=== PATIENT | female | born 1990 | race Caucasian/White ===

== ENCOUNTER → 2020-11-10 | Outpatient (CLI) | payer OTHER ==
[~2020-11-10] MED LIST: HYDR-2765 PO
== END ==
LOC: LAB 10:19
PROVIDERS: ATTEND Orthopaedic Surgery
DX: Z01.812 Encounter for preprocedural laboratory examination (principal); Z20.822 Contact with and (suspected) exposure to COVID-19
CPT/HCPCS: U0003; U0005

== ENCOUNTER 2020-11-13 05:58 | Day surgery (SDC) | payer OTHER ==
--- NOTE | 2020-11-12 19:39 | PDOC1 ---
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 She reports having had a LEFT wrist dorsal ganglion cyst over the ulnar aspect of the wrist drained twice previously and having had recurrence. Third attempt was made to drain the cyst as well reported to be not successful. The fluid she confirms was clear jellylike fluid. 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 She is reported healthy without a surgical history or prior trauma to the wrist. She is right-hand dominant. She denies any radicular type symptoms in the upper extremity or acute sense of illness, fevers, chills, night sweats. She tells me that she aspires to get excepted into the [employer]'s Nursing or PA program. Current Medications Current Medications Current Medications Clindamycin Phosphate 50 ml @ 100 mls/hr 1X PREOP PRN IV PRIOR TO PROCEDURE; Start 11/13/20 at 06:00; Stop 11/13/20 at 18:00 Allergies Allergies: Coded Allergies: Penicillins (Verified Allergy, Intermediate, Hives, 11/12/20) Physical Exam General: Alert HEENT: Atraumatic Lungs: Normal air movement Heart: RRR Abdomen: Soft Extremities: Other (Ganglion cyst is present of the left wrist) Skin: No significant lesion Neuro: Normal speech VTE Prophylaxis Ordered VTE Prophylaxis Devices: No VTE Pharmacological Prophylaxi: No Assessment/Plan Assessment/Plan She and I discussed operative versus nonoperative management. She is tried a spiration with nonoperative management without prolonged success. Surgical management has a better success rate but does have increased risk of complications such as nerve injury. Generally the recurrence rate is down to about 15% with surgery, perhaps less if we can get the dorsal capsule closed with suture. She stated understanding of the risk benefits and alternatives and desires to proceed. Justifications for Admission Other Justification SILVERIO HILLS MD Nov 12, 2020 19:39
[~2020-11-13] VITALS: Ht 160 cm; Wt 64.0 kg
[2020-11-13] MEDS ORDERED: CLINDAMYCIN 900MG PREMIX 50 ML IV PRN (06:00)
[2020-11-13] MEDS ORDERED: IV RINGERS,LACTATED 1000ML 1,000 ML IV SCH ×2 (06:00→08:00)
[2020-11-13] MEDS ORDERED: BUPIVACAINE-EPI 0.25% 30 ML VIAL KIT. ONE (06:34)
[2020-11-13] MEDS ORDERED: PROPOFOL 10 MG/ML (20ML) VIAL. IV ONE ×4 (06:55→06:58)
[2020-11-13] MEDS ORDERED: MIDAZOLAM HCL/PF 2 MG/2 ML VIAL. ONE (07:06)
[2020-11-13] MEDS ORDERED: LIDOCAINE 2% PF 5 ML VIAL. ONE (07:20)
[2020-11-13] MEDS ORDERED: fentaNYL PF VIAL 100 MCG/2 ML VIAL IVP PRN (08:00)
[2020-11-13] MEDS ORDERED: MORPHINE SULFATE 2 MG/ML VIAL. IVP PRN (08:00)
[2020-11-13] MEDS ORDERED: HYDROmorphone 2 MG/ML VIAL IVP PRN (08:00)
[2020-11-13] MEDS ORDERED: PROCHLORPERAZINE 10 MG/2 ML VIAL. IVP PRN (08:00)
--- NOTE | 2020-11-13 08:24 | PDOC4 ---
Operative Note Operative Note Date of Procedure: November 13, 2020 Pre-Op Diagnosis: Ganglion, left wrist M67.432 Post-Op Diagnosis: Same Procedure: Excision of ganglion wrist, dorsal, primary (CPT 59305) of the left wrist Surgeon: Silverio Martin MD Ice Grinder: Cj OTOOLE Anesthesia: Local MAC EBL: 10 mL Specimens Obtained: left wrist ganglion cyst Complications: none Drains: none Tourniquet time: Applied but not inflated Indications for Procedure: The patient is a 30-year-old with a mass at the dorsal aspect of the left wrist. The mass is nonpulsatile, it is consistent with a ganglion. The patient and I discussed ganglion cyst excision, and discussed the risks, benefits and alternatives of surgery. We discussed the potential risk of recurrence of the ganglion cyst, bleeding, infection, or damage to the superficial nerves which can cause permanent numbness near the incision. All of the patients questions about surgery were answered and she desired to proceed. Procedure in Detail: The patient was identified in the preoperative holding area. The correct left upper extremity was marked by me. The patient was taken to the operating room where general anesthesia was used. The patient was positioned supine on the operating table. Preoperative antibiotics were given intravenously. A tourniquet was placed on the upper left arm. A timeout p rocedure was performed. The limb was prepared in sterile fashion. Sterile drapes were applied. Local anesthetic with epinephrine was injected into the skin edges. A careful transverse incision was made over the area of the cyst. Loupe magnification (3 .5 power, extended field) was used throughout to prevent neurovascular or tendon injury. The cyst was easily identified and careful scissor dissection was performed. My clinical assistant professor retracted the extensor tendons and the superficial nerve branches. The gelatinous cyst was carefully excised from the dorsal capsule after circumferential dissection. Reddish gelatinous fluid was noted to escape from the cyst as it was removed. Copious saline irrigation was used. Bovie electrocautery was used for hemostasis, with care made not to injure the superficial nerve branches nor the extensor tendons. The capsule was repaired with #3-0 Vicryl [id number] sutures to help prevent recurrence. The subcutaneous tissue was carefully repaired with #3-0 Vicryl interrupted sutures. The skin was approximated with #30 STRATAFIX Monocryl for a cosmetic closure. The skin edges were injected with 0.25% Marcaine with epinephrine. A bulky sterile dressing and a splint were applied. Needle and sponge counts were correct. There were no apparent complications. SILVERIO MARTIN MD Nov 13, 2020 08:24
[2020-11-13] MEDS ORDERED: fentaNYL PF VIAL 100 MCG/2 ML VIAL ONE (08:28)
[2020-11-13] MEDS: fentaNYL PF VIAL 100 MCG/2 ML VIAL IVP PRN ×2 (08:31→08:47)
[2020-11-13] MEDS ORDERED: HYDROcodone/APAP 7.5/325MG 1 TAB TABLET PO PRN ×2 (08:45)
[2020-11-13 08:55] VITALS: BP 110/82
[2020-11-13] MEDS ORDERED: HYDR-2765 PO (08:58)
== END 2020-11-13 09:38 | disposition home or self-care (01) ==
LOC: SURG 05:58 → EDUNIT# 07:10 → SURG 09:38
PROVIDERS: ATTEND Orthopaedic Surgery
DX: M67.432 Ganglion, left wrist (principal); K21.9 Gastro-esophageal reflux disease without esophagitis; Z79.899 Other long term (current) drug therapy; Z98.890 Other specified postprocedural states; Z88.0 Allergy status to penicillin; Z72.89 Other problems related to lifestyle
CPT/HCPCS: 25111; 81025; J2250; J2704; J3010; J3490; A4364; A4452; A4657; A4930; A6452